=== PATIENT | female | born 1965 | race Caucasian/White ===

== ENCOUNTER 2017-09-11 05:35 | Day surgery (SDC) | payer OTHER ==
[2017-09-11] MEDS ORDERED: CEFAZOLIN 2 GM/50 ML (PMX) 50 ML IVPB (07:00)
[2017-09-11] MEDS ORDERED: LACTATED RINGER'S 1,000 ML IV* (07:00)
[2017-09-11] MEDS ORDERED: LIDOCAINE 2% (SDV) 5 ML INJ (07:00)
[2017-09-11] MEDS ORDERED: ROPIVACAINE 0.5 % 30 ML VIAL (07:16)
[2017-09-11] MEDS: BUPIVACAINE 0.5% (SDV) 30 ML INJ (07:25)
[2017-09-11] MEDS: LIDOCAINE 1% (MPF) 30 ML INJ (07:26)
[2017-09-11] MEDS: POLYMYXIN/BACITRACIN 1L IRRIG (07:26)
[2017-09-11] MEDS ORDERED: MIDAZOLAM 1 MG/ML 2 ML INJ (07:30)
[2017-09-11] MEDS ORDERED: DEXAMETHASONE 4 MG/ML 1 ML INJ (08:00)
[2017-09-11] MEDS ORDERED: LABETALOL HCL 20MG INJ (08:10)
[2017-09-11] MEDS ORDERED: ONDANSETRON 4 MG INJ ×2 (09:01→09:22)
[2017-09-11] MEDS ORDERED: CLINDAMYCIN 900 MG/D5W (PMX) 50 ML IVPB (09:02)
[2017-09-11] MEDS ORDERED: ROCURONIUM 50 MG INJ (09:02)
[2017-09-11] MEDS ORDERED: PROPOFOL 20 ML (09:02)
[2017-09-11] MEDS ORDERED: SUGAMMADEX SODIUM 200 MG/2 ML VIAL IV (09:03)
[2017-09-11] MEDS ORDERED: MEPERIDINE 25 MG INJ (09:22)
[2017-09-11] MEDS ORDERED: HYDROmorphONE (0.2 MG/ML) 10ML SYG IV ×2 (09:23→09:30)
[2017-09-11] MEDS: ONDANSETRON 4 MG INJ IV (09:26)
[2017-09-11] MEDS: HYDROmorphONE (0.2 MG/ML) 10ML SYG IV ×4 (09:26→09:46)
[2017-09-11] MEDS: MEPERIDINE 25 MG INJ IV (09:27)
[2017-09-11] MEDS ORDERED: MIDAZOLAM 1 MG/ML 2 ML INJ IV (09:30)
[2017-09-11] MEDS ORDERED: KETOROLAC 30 MG INJ IV (09:30)
[2017-09-11] MEDS ORDERED: EPHEDrine SULFATE 50 MG/5 ML SYG IV (09:30)
[2017-09-11] MEDS ORDERED: hydrALAzine 20 MG INJ IV (09:30)
[2017-09-11] MEDS ORDERED: DIPHENHYDRAMINE 50 MG INJ IV (09:30)
[2017-09-11] MEDS ORDERED: OXYCODONE/ACETAMINOPHEN (5/325) TAB PO ×2 (09:30)
[2017-09-11] MEDS ORDERED: METOCLOPRAMIDE 10 MG INJ IV (09:30)
[2017-09-11] MEDS ORDERED: ALBUTEROL 0.083% (NEB) 2.5 MG/3 ML AMP HHN (09:30)
[2017-09-11] MEDS ORDERED: FENTAnyl 50 MCG/ML VIAL IV ×3 (09:30)
[2017-09-11] MEDS ORDERED: LABETALOL HCL 20MG INJ IV (09:30)
== END 2017-09-11 10:45 | disposition home or self-care (01) ==
LOC: SDS 05:35
DX: S52.572D Other intraarticular fracture of lower end of left radius, subsequent encounter for closed fracture with routine healing (principal); X58.XXXD Exposure to other specified factors, subsequent encounter; G56.02 Carpal tunnel syndrome, left upper limb; E66.9 Obesity, unspecified; Z68.33 Body mass index [BMI] 33.0-33.9, adult
CPT/HCPCS: 25609; 71045; 73090